=== PATIENT | male | born 1985 | race Caucasian/White ===

== ENCOUNTER 2018-11-20 10:18 | Emergency (ER) | payer SELFPAY ==
[~2018-11-20] VITALS: Ht 175.2 cm; Wt 4.5 kg
[2018-11-20] MEDS ORDERED: PREDNISONE20 M1 PO (10:39)
[2018-11-20] MEDS ORDERED: ARTIFICIAL TEAR30 M4 OP (10:39)
[2018-11-20] MEDS ORDERED: VALTREX1000 MG PO (10:39)
== END 2018-11-20 11:01 | disposition home or self-care (01) ==
LOC: ED 10:18
PROVIDERS: Nurse Practitioner Family
DX: G51.0 Bell's palsy (principal)

== ENCOUNTER → 2023-09-24 | Outpatient (CLI) | payer OTHER ==
[~2023-09-24] MED LIST: ARTIFICIAL TEAR30 M4 OP; PREDNISONE20 M1 PO; VALTREX1000 MG PO
== END | disposition home or self-care (01) ==
LOC: US 10:00
PROVIDERS: ATTEND Internal Medicine
DX: R79.89 Other specified abnormal findings of blood chemistry (principal)